=== PATIENT | female | born 1980 | race Caucasian/White ===

== ENCOUNTER → 2019-10-01 12:54 | Day surgery (SDC) | payer BC ==
[~2019-10-01 12:54] MED LIST: Acetaminophen IV 1GM/100ML * 100 ML ONE; Buffered Lidocaine 1% SYRIN* 1 ML/SYRINGE INTRADERM ONE; Dexamethasone IV* 4 MG/ML 1 ML (4 MG) IV SLOW PU ONE; Dexamethasone IV* 4 MG/ML 1 ML (4 MG) ONE; DiMENhydriNATE IV* 50 MG/ML VIAL IV PUSH PRN; Famotidine IV* 10 MG/ML 2 ML (20 mg) ONE; Famotidine TAB* 20 MG ONE; Famotidine TAB* 20 MG PO ONE; HYDROmorphone INJ1* 1 MG/ML SYRINGE IV PRN; KETAMINE HCL* 50 MG/ML 10 ML VIAL ONE; Ketorolac INJ* 30 MG/ML 1 ML VIAL ONE; Lactated Ringers 1000 ML Bag* 1,000 ML IV SCH; Lidocaine 1% INJ* 10 MG/ML 30 ML SDV ONE; Lidocaine 1% w EPI 1:100,000* MDV 20 ML VIAL ONE; Lidocaine 2% PF * 5 ML VIAL ONE; Midazolam* 1 MG/ML 5 ML VIAL (5 MG) ONE; Naloxone* 0.4 MG/ML 1 ML VIAL IV PRN; Ondansetron INJ* 2 MG/ML VIAL ONE; PROCHLORPERAZINE INJ 5 MG/ML 2 ML VIAL ONE; Propofol* 10 MG/ML 20 ML BTL ONE; Propofol* 500 MG/50 ML BTL ONE; Scopolamine 1.5 mg* PATCH TRANSDERM PRN; Scopolamine PATCH Remove* 1 NOTE MISC PATCH OFF ONE; fentaNYL* 50 MCG/ML 2 ML VIAL (100 MCG VIAL) IV PRN; fentaNYL* 50 MCG/ML 2 ML VIAL (100 MCG VIAL) ONE; oxyCODONE TAB* 5 MG TAB PO PRN
[2019-10-01 13:56] LABS: ABS Basophils 0.1 10^3/ul (0-0.2); ABS Eosinophils 0.1 10^3/ul (0-0.6); ABS Monocytes 0.5 10^3/ul (0-0.8); Hematocrit 40 % (35-47); Hemoglobin 13.5 g/dL (12.0-16.0); Mean Corpuscular HGB Conc 34 g/dL (31-36); Mean Corpuscular Hemoglobin 30 pg (27-31); Mean Corpuscular Volume 90 fL (80-97); Mean Platelet Volume 9.7 fL (7.4-10.4); Platelet Count 250 10^3/uL (150-450); Red Blood Count 4.43 10^6 /uL (3.70-4.87); Red Cell Distribution Width 13 % (10-15); White Blood Count 6.6 10^3/uL (3.5-10.8)
[2019-10-01 13:57] LABS: Eosinophil % 0.9 %; Lymphocyte % 30.4 %
[2019-10-01 16:08] VITALS: BP 106/57
--- NOTE | 2019-10-15 02:00 | OP ---
DATE OF OPERATION: 10/01/19 - [facility] DATE OF : 80 SURGEON: Mike Armendariz MD. PRODUCT SAFETY ENGINEER: None. ANESTHESIA: Monitored anesthesia care with paracervical block using 1% lidocaine 10 mL. PRE-OP DIAGNOSIS: Incomplete after a trial of termination of with medication. POST-OP DIAGNOSIS: Incomplete after a trial of termination of with medication. OPERATIVE PROCEDURE: Dilation and evacuation with suction curettage. ESTIMATED BLOOD LOSS: None. SPECIMENS SENT TO PATHOLOGY: Endometrial curettings and products of conception. FLUIDS: She received 500 cc of IV crystalloid fluid. URINE OUTPUT: Clear about 100 cc draining from her bladder. FINDINGS: The uterus was noted to sound to 9 cm and was in anteverted position. The cervix was noted to be about 1 cm dilated with moderate amounts of products of conception removed with the procedure. DESCRIPTION OF PROCEDURE: The patient was taken to the operating room. She was identified. She was placed on the operating room table where she was then sedated. She was placed in a dorsal lithotomy position. A weighted speculum was inserted into the patient's vagina. The bladder was catheterized and drained of clear urine. The cervix was identified. It was noted to be dilated about 1 cm. It was then grasped with a single-tooth tenaculum. At this point, the uterus was sounded to 9 cm and it was noted to be in anteverted position. A 10-mm suction curette was introduced through the cervix to the patient's fundus. This was attached to suction and a suction curettage was performed. At this point, complete denudation of the uterus was confirmed using a sharp curette. All the instruments were then removed from the patient's vagina. Sponge, lap, and needle counts were correct x2. The endometrial curettings were sent to pathology. The patient tolerated the procedure well. She was then transferred to the recovery room area in stable condition. [id number]/[facility] #: [id number] [facility]
== END | disposition home or self-care (01) ==
LOC: OR 12:54
PROVIDERS: ATTEND Obstetrics & Gynecology
DX: O04.6 Delayed or excessive hemorrhage following (induced) termination of pregnancy (principal)
CPT/HCPCS: 36415; 81025; 85025; 86850; 86900; 86901; 88305; A9270-GY; J0780; J1100; J1885; J2250; J2405; J2704; J3010

== ENCOUNTER 2020-12-30 19:09 | Inpatient (IN) ==
[2020-12-30 20:08] LABS: Urine Benzodiazepine Screen None Detected (None Detect); Urine Cannabinoids Screen None Detected (None Detect); Urine Opiates Screen None Detected (None Detect)
[2020-12-30] MEDS ORDERED: Lactated Ringers 1000 ml BAG 1,000 ML IV ONE (20:13)
[2020-12-30 20:30] LABS: ABS Basophils 0.1 10^3/ul (0-0.2); ABS Lymphocytes 1.6 10^3/ul (1.0-4.8); ABS Monocytes 0.8 10^3/ul (0-0.8); ABS Neutrophils 9.4 10^3/ul (1.5-7.7); Eosinophil % 0.3 %; Hematocrit 30 % (35-47); Hemoglobin 10.3 g/dL (12.0-16.0); Lymphocyte % 13.3 %; Mean Corpuscular HGB Conc 34 g/dL (31-36); Mean Corpuscular Hemoglobin 27 pg (27-31); Mean Corpuscular Volume 79 fL (80-97); Mean Platelet Volume 8.5 fL (7.4-10.4); Nucleated Red Blood Cells % 0.3; Platelet Count 254 10^3/uL (150-450); Red Blood Count 3.84 10^6 /uL (3.70-4.87); Red Cell Distribution Width 16 % (10-15); White Blood Count 11.8 10^3/uL (3.5-10.8)
[2020-12-30] MEDS ORDERED: Oxytocin in LR 20 UNITS/1,000 ML BAG IVPB SCH (20:45)
[2020-12-30] MEDS ORDERED: Lactated Ringers 1000 ml BAG 1,000 ML IV SCH (21:00)
[2020-12-31] MEDS ORDERED: OBEPIDURAL 250 ML EPIDURAL ONE (04:21)
[2020-12-31] MEDS ORDERED: Phenylephrine 40 mcg/mL 10mL (400mcg) SYRINGE IV PUSH PRN ×2 (05:07)
[2020-12-31] MEDS ORDERED: Lactated Ringers 1000 ml BAG 1,000 ML IV ONE (05:07)
[2020-12-31] MEDS ORDERED: Lactated Ringers 1000 ml BAG 500 ML IV PRN ×2 (05:07)
[2020-12-31] MEDS ORDERED: Sodium Citrate/Citric Acid LIQ 15 ML UDC PO PRN (05:07)
[2020-12-31] MEDS ORDERED: Lactated Ringers 1000 ml BAG 1,000 ML IV SCH ×3 (06:00→08:00)
[2020-12-31] MEDS ORDERED: RHO D Immune Globulin (HUMAN) 300 MCG = 1,500 I.U. INJ IM PRN (07:42)
[2020-12-31] MEDS ORDERED: Dibucaine 1% OINT 28.35 GM TUBE PR PRN (07:42)
[2020-12-31] MEDS ORDERED: Witch Hazel PAD JAR TOPICAL PRN (07:42)
[2020-12-31] MEDS ORDERED: Methylergonovine 0.2 mg AMPULE 1 ml AMP IM ONE (07:43)
[2020-12-31] MEDS ORDERED: Oxytocin in LR 20 UNITS/1,000 ML BAG IVPB SCH (08:00)
[2021-01-01] MEDS: OBEPIDURAL 250 ML EPIDURAL SCH (07:16)
[2021-01-01 08:00] VITALS: BP 122/58
[2021-01-01] MEDS ORDERED: Measles, Mumps,Rubella VACC 0.5 ML/VIAL SUBCUT ONE (09:00)
[2021-01-01 09:11] LABS: ABS Eosinophils 0.1 10^3/ul (0-0.6); ABS Lymphocytes 1.6 10^3/ul (1.0-4.8); ABS Monocytes 0.8 10^3/ul (0-0.8); ABS Neutrophils 8.6 10^3/ul (1.5-7.7); Hematocrit 29 % (35-47); Hemoglobin 9.6 g/dL (12.0-16.0); Lymphocyte % 14.7 %; Mean Corpuscular HGB Conc 33 g/dL (31-36); Mean Corpuscular Hemoglobin 26 pg (27-31); Mean Corpuscular Volume 81 fL (80-97); Mean Platelet Volume 8.9 fL (7.4-10.4); Nucleated Red Blood Cells % 0.1; Platelet Count 243 10^3/uL (150-450); Red Blood Count 3.62 10^6 /uL (3.70-4.87); Red Cell Distribution Width 16 % (10-15); White Blood Count 11.1 10^3/uL (3.5-10.8)
== END 2021-01-01 14:10 | disposition home or self-care (01) | DRG 560 ==
LOC: MCHOBOUT 19:09 → MCHOB 20:14
PROVIDERS: ADMIT Midwife; ATTEND Midwife